=== PATIENT | female | born 1990 | race African-American/Black ===

== ENCOUNTER 2017-08-07 13:35 | Emergency (ER) | payer MEDICAID, OTHER ==
[~2017-08-07] VITALS: Ht 160 cm; Wt 93.9 kg
[~2017-08-07 13:35] MED LIST: ALBU17AE3; FRS325T PO; PREN1TAB39 PO
--- OUTSIDE RECORDS SUMMARY | 2017-08-07 13:43 | XMS REPORT ---
Author Author Max Agarwal Organization [facility] Address [address] [place], [place] [address] Care Team Providers Care Surveillance Operator Name Role Phone Max Agarwal PCP Unavailable Allergies and Adverse Reactions Name Reaction Notes PENICILLINS Plan of Treatment Planned Activity Comments Planned Date Planned Time Plan/Goal Ultrasound, OB complete >14 weeks 06/26/2017 12:00 AM *Thin layer pap with reflex to HPV ; cervical/vaginal (ThinPrep or Surepath) 06/25/2017 12:00 AM Gonorrhea 06/25/2017 12:00 AM Chlamydia 06/25/2017 12:00 AM HIV-1 antibody 06/25/2017 12:00 AM UA with Culture and Sensitivity 06/25/2017 12:00 AM panel (CBC with differential, automated, Hepatitis B surface antigen ( HBsAg), Rubella antibody, RBC antibody screen, Blood typing (ABO and Rh(D), RPR w/ Reflex to TP 06/25/2017 12:00 AM HEPATITIS C AB 06/25/2017 12:00 AM Medications Active Name Start Date Estimated Completion Date SIG Comments Plus 29 mg iron- 1 mg oral tablet 04/27/2017 take 1 tablet by oral route once daily with a meal for 30 days Zofran ODT 4 mg oral tablet,disintegrating 06/24/2017 06/26/2017 Place 1-2 tablets on your tongue every 8 hours as needed for vomiting. Name Start Date Expiration Date SIG Comments Motrin Oral Tablet 800 mg 09/14/2011 10/14/2011 take 1 tablet by oral route every 8 hours as needed for 30 days Percocet Oral Tablet 5-325 mg 09/14/2011 09/16/2011 take 1 tablet by oral route every 6 hours as needed for 2 days triamcinolone acetonide Topical Cream 0.1 % 02/05/2012 02/05/2012 apply a thin layer to the affected area(s) by topical route 2 times per day Macrobid Oral Capsule 100 mg 02/08/2012 02/15/2012 take 1 capsule (100 mg) by oral route every 12 hours with food for 7 days Discontinued Name Start Date Discontinued Date SIG Comments permethrin Topical Cream 5 % 01/22/2012 03/08/2012 apply (thoroughly massage into skin from head to soles of feet) by topical route once leave on for 8-14 hr , then remove by thorough washing Depo-Provera Intramuscular Suspension 150 mg/mL 03/08/2012 04/27/2017 inject 150 mg by intramuscular route every 3 months Problem List Description Status Onset Anemia Active Vital Signs Date Time BP-Sys(mm[Hg] BP-Nirmala(mm[Hg]) HR(bpm) RR(rpm) Temp WT HT HC BMI BSA BMI Percentile O2 Sat(%) 06/25/2017 1:52:00 PM 139 mmHg 67 mmHg 87 bpm 99.4 F 206 lbs 62 in 37.68 kg/m2 2.02 m2 06/24/2017 1:22:00 PM 128 mmHg 78 mmHg 83 bpm 16 rpm 99 F 203.25 lbs 62 in 37.1745 kg/m 2.0082 m 99 % 05/05/2017 8:14:00 AM 118 mmHg 76 mmHg 69 bpm 18 rpm 98.3 F 204 lbs 62 in 37.31 kg/m2 2.01 m2 99 % 04/27/2017 6:41:00 PM 128 mmHg 82 mmHg 74 bpm 16 rpm 99 F 202 lbs 62 in 36.9459 kg/m 2.002 m 100 % 11/27/2016 11:10:00 AM 122 mmHg 62 mmHg 74 bpm 18 rpm 98.3 F 202.5 lbs 62 in 37.04 kg/m2 2.00 m2 100 % 03/11/2012 1:46:00 PM 129 mmHg 76 mmHg 79 bpm 97.2 F 160.5 lbs 62 in 29.3555 kg/m 1.7846 m 92.7 % 03/08/2012 4:10:00 PM 129 mmHg 70 mmHg 89 bpm 97.4 F 160.5 lbs 62 in 29.36 kg/m2 1.78 m2 92.7 % 02/08/2012 3:33:00 PM 124 mmHg 64 mmHg 68 bpm 18 rpm 163.25 lbs 01/22/2012 2:04:00 PM 118 mmHg 64 mmHg 62 bpm 18 rpm 97.6 F 162.375 lbs 62 in 29.70 kg/m2 1.79 m2 93.3 % 12/19/2011 1:39:00 PM 102 mmHg 62 mmHg 72 bpm 164 lbs 62 in 29.9957 kg/m 1.8039 m 93.8 % 09/22/2011 10:20:00 AM 118 mmHg 72 mmHg 167 lbs 62 in 30.54 kg /m2 1.82 m2 94.6 % 09/21/2011 4:43:00 PM 110 mmHg 78 mmHg 72 bpm 98.4 F 168 lbs 62 in 30.7273 kg/m 1.8258 m 94.8 % 09/15/2011 8:28:00 AM 107 mmHg 66 mmHg 71 bpm 97.2 F 171 lbs 62 in 31.28 kg/m2 1.84 m2 95.3 % 09/13/2011 1:38:00 PM 118 mmHg 66 mmHg 94 bpm 170 lbs 62 in 31.0931 kg/m 1.8366 m 95.1 % Social History Name Description Comments Living with significant other Alcohol Never Tobacco Current every day smoker History of Procedures Date Ordered Description Order Status 09/13/2011 12:00 AM SPECIMEN HANDLING OFFICE-LAB Reviewed 09/13/2011 12:00 AM N.GONORRHOEAE DNA AMP PROB Reviewed 09/13/2011 12:00 AM CHLAMYDIA CULTURE Reviewed 09/13/2011 12:00 AM OBSTETRIC PANEL Reviewed 09/13/2011 12:00 AM HIV-1ANTIBODY Reviewed 09/13/2011 12:00 AM URINALYSIS AUTO W/SCOPE Reviewed 09/13/2011 12:00 AM OB US < 14 WKS SINGLE FETUS Reviewed 09/13/2011 12:00 AM ASSAY OF PROGESTERONE Reviewed 09/13/2011 12:00 AM CHORIONIC GONADOTROPIN TEST Reviewed 09/13/2011 12:00 AM ASSAY OF PROGESTERONE Reviewed 09/13/2011 12:00 AM CHORIONIC GONADOTROPIN TEST Reviewed 09/22/2011 12:00 AM THER/PROPH/DIAG INJ SC/IM Reviewed 12/19/2011 12:00 AM THER/PROPH/DIAG INJ SC/IM Reviewed 02/09/2012 12:00 AM URINALYSIS AUTO W/O SCOPE Reviewed 02/08/2012 12:00 AM URINE CULTURE/COLONY COUNT Reviewed 03/11/2012 12:00 AM THER/PROPH/DIAG INJ SC/IM Reviewed 03/11/2012 12:00 AM Depo-Provera 150 Mg (brought in by patient) Reviewed 04/27/2017 7:12 PM URINE TEST Reviewed Results Summary Date and Description Results 09/13/2011 3:45 PM COLOR YELLOW APPEARANCE HAZY SPEC GRAV >=1.030 pH 5.5 PROTEIN NEGATIVE GLUCOSE NEGATIVE KETONE NEGATIVE BILIRUBIN NEGATIVE BLOOD NEGATIVE NITRITE NEGATIVE LEUK SCREEN NEGATIVE WBC/HPF 0-5 RBC/HPF RARE CASTS/ LPF NEGATIVE CRYSTALS NEGATIVE MUCOUS THRDS NEGATIVE BACTERIA NEGATIVE EPITH CELLS FEW SQUAMOUS TRICHOMONAS NEGATIVE YEAST NEGATIVE CULT ORDERED YES WBC 6.9 RBC 5.12 HGB 11.30 g/dLHCT 34.60 %MCV 68.0 fLMCH 22.10 pgMCHC 32.70 g/dLRDW SD 44 RDW CV 17.60 %MPV 9.10 fLPLT 360 NRBC# 0.00 NRBC% 0.0 %NEUT 58.10 %%LYMP 31.90 %%MONO 7.40 %%EOS 2.20 %%BASO 0.40 %#NEUT 4.02 #LYMP 2.21 #MONO 0.51 #EOS 0.15 #BASO 0.03 MANUAL DIFF SEE BELOW SEGS 57 BANDS 5 LYMPHS 31 MONOS 5 EOS 2.0 %MICRO 2++ PROGESTERONE 6.30 ng/mLBETA HCG QUANT 2719.71 RUBELLA 16.0 IU/mL 09/15/2011 8:15 AM BETA HCG QUANT 2116.99 PROGESTERONE 6.10 ng/mL 04/27/2017 7:12 PM Test, Urine positive History Of Immunizations Not available. History of Past Illness Name Date of Onset Comments Anemia test confirmed positive Sep 13 2011 1:48PM Missed Sep 13 2011 1:48PM , Missed Sep 13 2011 3:06PM , Missed Sep 15 2011 9:30AM Postoperative Visit Sep 21 2011 4:47PM Contraceptive counseling (Depo-Provera) Sep 22 2011 10:23AM Contraceptive counseling (Depo-Provera) Dec 19 2011 1:50PM Scabies Jan 22 2012 2:06PM Dysuria Feb 08 2012 3:34PM Contraceptive counseling (Depo-Provera) Mar 11 2012 1:55PM Encounter for occupational health examination Nov 27 2016 11:12AM Less than 8 weeks gestation of Apr 27 2017 6:45PM Less than 8 weeks gestation of May 05 2017 8:17AM Bleeding in early May 05 2017 8:17AM Hyperemesis gravidarum Jun 24 2017 1:30PM Late care Jun 25 2017 2:06PM test confirmed positive Jun 25 2017 1:58PM Vaginal discharge Jun 25 2017 1:58PM Payers Insurance Name Company Name Plan Name Plan Number Policy Number Policy Group Number Start Date [place] Documentation Spec Prog - RHC [place] Documentation Spec Prog - RHC [id number] N/A [facility] [id number] N/A [employer] - CMFHP [employer] -CMFHP [id number] N/A [facility] Med Occupational Medicine [id number] N/A History of Encounters Visit Date Visit Type Provider 06/25/2017 Office visit Max Agarwal MD 06/24/2017 Office visit Jojo Lehman SCALE OPERATOR 05/05/2017 Office visit Rissa Pina SCALE OPERATOR 04/27/2017 Office visit Rissa Pina SCALE OPERATOR 11/27/2016 Office visit Zora Wu SCALE OPERATOR 03/11/2012 Nurse visit Patricia Lea MD 03/08/2012 Voided Patricia Lea MD 02/08/2012 Office visit Zora Wu SCALE OPERATOR 01/22/2012 Office visit Zora Wu SCALE OPERATOR 12/19/2011 Nurse visit All Thakur MD 09/22/2011 Nurse visit All Thakur MD 09/21/2011 Surgery All Thakur MD 09/15/2011 Hospital All Thakur MD 09/15/2011 Office visit All Thakur MD 09/13/2011 Office visit All Thakur MD
--- OUTSIDE RECORDS SUMMARY | 2017-08-07 13:43 | XMS REPORT ---
Author KRISTIN Hall [facility] eClinicalWorks Address Unknown Phone Unavailable Care Team Providers Care Professional Bass Fisherman Name Role Phone KRISTIN ADAMSON CP Unavailable Allergies, Adverse Reactions, Alerts Substance Reaction Event Type Amoxicillin hives Drug Allergy Problems Problem Type Condition Code Onset Dates Condition Status Assessment Encounter for management and injection of depo-Provera Z30.42 Active Assessment Encounter for Depo-Provera contraception Z30.42 Active Problem Other general counseling and advice for contraceptive management V25.09 Active Medications Medication Code System Code Instructions Start Date End Date Status Dosage Depo-Provera [facility] [address]-77 150 MG/ML Intramuscular one time March 03, 2016 February 26, 2017 1 ml Procedures Procedure Coding System Code Date Office Visit, Est Pt., Level 3 CPT-4 76294 March 03, 2016 DEPO PROVERA (150 MG/ML) CPT-4 J1050 March 03, 2016 URINE TEST CPT-4 27574 March 03, 2016 THER/PROPH/DIAG INJ, SC/IM CPT-4 40099 March 03, 2016 Vital Signs Date/Time: March 03, 2016 Cardiac Monitoring Heart Rate 78 bpm Weight 180.7 lbs Height 62 in Blood Pressure Diastolic 60 mmHg Blood Pressure Systolic 120 mmHg Results No Known Results Summary Purpose eClinicalWorks Submission
--- OUTSIDE RECORDS SUMMARY | 2017-08-07 13:43 | XMS REPORT ---
Author Author Rissa Pina [facility] Address [address] [place], [place] [address] Care Team Providers Care Chef Passenger Vessel Name Role Phone Rissa Pina PCP Unavailable Allergies and Adverse Reactions Name Reaction Notes PENICILLINS Plan of Treatment Not available. Medications Name Start Date Expiration Date SIG Comments [...] HC BMI BSA BMI Percentile O2 Sat(%) 04/27/2017 6:41:00 PM 128 mmHg 82 mmHg 74 bpm 16 rpm 99 F 202 lbs 62 in 36.95 kg/m2 2.00 m2 100 % 11/27/2016 11:10:00 AM 122 mmHg 62 mmHg 74 bpm 18 rpm 98.3 F 202.5 lbs 62 in 37.0374 kg/m 2.0045 m 100 % 03/11/2012 1:46:00 PM 129 mmHg 76 mmHg 79 bpm 97.2 F 160.5 lbs 62 in 29.36 kg/m2 1.78 m2 92.7 % 03/08/2012 4:10:00 PM 129 mmHg 70 mmHg 89 bpm 97.4 F 160.5 lbs 62 in 29.3555 kg/m 1.7846 m 92.7 % 02/08/2012 3:33:00 PM 124 mmHg 64 mmHg 68 bpm 18 rpm 163.25 lbs 01/22/2012 2:04:00 PM 118 mmHg 64 mmHg 62 bpm 18 rpm 97.6 F 162.375 lbs 62 in 29.6985 kg/m 1.795 m 93.3 % 12/19/2011 1:39:00 PM 102 mmHg 62 mmHg 72 bpm 164 lbs 62 in 30.00 kg/m2 1.80 m2 93.8 % 09/22/2011 10:20:00 AM 118 mmHg 72 mmHg 167 lbs 62 in 30.5444 kg/m 1.8203 m 94.6 % 09/21/2011 4:43:00 PM 110 mmHg 78 mmHg 72 bpm 98.4 F 168 lbs 62 in 30.73 kg/m2 1.83 m2 94.8 % 09/15/2011 8:28:00 AM 107 mmHg 66 mmHg 71 bpm 97.2 F 171 lbs 62 in 31.276 kg/m 1.842 m 95.3 % 09/13/2011 1:38:00 PM 118 mmHg 66 mmHg 94 bpm 170 lbs 62 in 31.09 kg/m2 1.84 m2 95.1 % Social History Name Description Comments [...] BETA HCG QUANT 2116.99 PROGESTERONE 6.10 ng/mL History Of Immunizations Not available. History of [...] occupational health examination Nov 27 2016 11:12AM Payers Insurance Name Company Name Plan Name Plan Number Policy Number Policy Group Number Start Date [facility] Med Occupational Medicine [id number] N/A [facility] [id number] N/A [facility] [id number] N/A History of Encounters Visit Date Visit Type Provider 04/27/2017 Office visit Rissa Pina VETERINARY MEDICAL OFFICER 11/27/2016 Office visit Zora Wu VETERINARY MEDICAL OFFICER 03/11/2012 Nurse visit Patricia Lea MD 03/08/2012 Voided Patricia Lea MD 02/08/2012 Office visit Zora Wu VETERINARY MEDICAL OFFICER 01/22/2012 Office visit Zora Wu VETERINARY MEDICAL OFFICER 12/19/2011 Nurse visit All Thakur MD 09/22/2011 Nurse visit All Thakur MD 09/21/2011 Surgery All Thakur MD 09/15/2011 Hospital All Thakur MD 09/15/2011 Office visit All Thakur MD 09/13/2011 Office visit All Thakur MD
--- OUTSIDE RECORDS SUMMARY | 2017-08-07 13:44 | XMS REPORT ---
Author Author KRISTIN ADAMSON [facility] Address [address] [place] [address] Care Team Providers Care Motorized Squad Commanding Officer Name Role Phone KRISTIN ADAMSON Unavailable PROBLEMS Type Condition ICD9-CM Code [id number] Code Onset Dates Condition Status SNOMED Code Problem Constipation, unspecified constipation type K59.00 Active 02801522 Problem Vaginal burning N94.9 Active 014452117 Problem Other general counseling and advice for contraceptive management V25.09 Active 287024859 ALLERGIES Unknown Allergies SOCIAL HISTORY No smoking Hx information available PLAN OF CARE VITAL SIGNS MEDICATIONS Unknown Medications RESULTS Name Result Date Reference Range TEST, URINE (IN HOUSE) 2016-08-17 RESULTS negative Lot # [id number] Control + Exp date 12/19 PROCEDURES Procedure Date Ordered Related Diagnosis Body Site URINE TEST Aug 17, 2016 DEPO PROVERA (150 MG/ML) Aug 17, 2016 THER/PROPH/DIAG INJ, SC/IM Aug 17, 2016 IMMUNIZATIONS Vaccine Route Administration Date Status DEPO PROVERA (150 MG/ML) IM Intramuscular Aug 17, 2016 Administered
--- OUTSIDE RECORDS SUMMARY | 2017-08-07 13:44 | XMS REPORT ---
Author Author KRISTIN ADAMSON [facility] Address [address] [place] [address] Care Team Providers Care Fraternity Adviser Name Role Phone KRISTIN ADAMSON Unavailable PROBLEMS Type Condition ICD9-CM Code KUH29-FL Code Onset Dates Condition Status SNOMED Code Problem Constipation, unspecified constipation type K59.00 Active 45910158 Problem Vaginal burning N94.9 Active 832444681 Problem Other general counseling and advice for contraceptive management V25.09 Active 762509440 ALLERGIES Substance Reaction Event Type Date Status Amoxicillin hives Drug Allergy Nov, Active SOCIAL HISTORY Never Assessed PLAN OF CARE Activity Details Follow Up prn Reason: VITAL SIGNS Height 62 in 2016-11-17 Weight 200.2 lbs 2016-11-17 Temperature 99.5 degrees Fahrenheit 2016-11-17 Heart Rate 82 bpm 2016-11-17 Respiratory Rate 18 2016-11-17 BMI 36.61 kg/m2 2016-11-17 Blood pressure systolic 118 mmHg 2016-11-17 Blood pressure diastolic 76 mmHg 2016-11-17 MEDICATIONS Medication Instructions Dosage Frequency Start Date End Date Duration Status Doxycycline Hyclate 100 mg Orally every 12 hrs 1 capsule 12h Nov, Nov, 10 days Active Depo-Provera 150 MG/ML Intramuscular one time 1 ml Mar, Feb, 90 days Active RESULTS Name Result Date Reference Range TRICHOMONAS (IN HOUSE) 2016-11-17 TRICHOMONAS negative Control + Lot # [id number] Exp date 03/2017 BACTERIAL VAGINOSIS (IN HOUSE) 2016-11-17 RESULTS negative Control + Lot # [id number] Exp date 06/2017 CULTURE, GENITAL 2016-11-17 Genital Culture, Routine Final report Result 1 PDF Report 2016-11-17 PDF Report1 LCLS PAP TEST, HPV IF ASCUS 2016-11-17 DIAGNOSIS: Specimen adequacy: Clinician provided ICD10: Performed by: Electronically signed by: . . Pathologist provided ICD10: Note: . HPV, high-risk Positive Negative GC/CHLAM PROBE (STATE) 2016-11-17 CHLAMYDIA GC PROCEDURES Procedure Date Ordered Result Body Site SPECIMEN HANDLING November 17, 2016 No Charge November 17, 2016 OLGUIN VAG, DNA, DIR PROBE November 17, 2016 TRICHOMONAS ASSAY W/OPTIC November 17, 2016 CULTURE, BACTERIA, OTHER November 17, 2016 IMMUNIZATIONS No Known Immunizations MEDICAL (GENERAL) HISTORY Type Description Date Medical History Due date 12/17/2016 Surgical History wisdom teeth Hospitalization History child
--- OUTSIDE RECORDS SUMMARY | 2017-08-07 13:44 | XMS REPORT ---
Author Author Max Agarwal Organization [facility] Address [address] [place], [place] [address] Care Team Providers Care Telephone Directory Distributor Driver Name Role Phone Max Agarwal PCP Unavailable Allergies and Adverse Reactions Name Reaction Notes PENICILLINS Plan of Treatment Not available. Medications Active Name Start Date Estimated Completion Date SIG Comments Plus 29 mg iron- 1 mg oral tablet 04/27/2017 take 1 tablet by oral route once daily with a meal for 30 days metronidazole 500 mg oral tablet 07/02/2017 take 1 tablet (500 mg) by oral route every 12 hours for 7 days Zofran ODT 4 mg oral tablet,disintegrating 07/19/2017 Place 1-2 tablets on your tongue every [...] Reviewed 04/27/2017 7:12 PM URINE TEST Reviewed 06/25/2017 12:00 AM CYTOPATH C/V THIN LAYER Reviewed 06/25/2017 12:00 AM SPECIMEN HANDLING OFFICE-LAB Reviewed 06/25/2017 12:00 AM N.GONORRHOEAE DNA AMP PROB Reviewed 06/25/2017 12:00 AM CHLAMYDIA CULTURE Reviewed 06/25/2017 12:00 AM HIV-1ANTIBODY Reviewed 06/25/2017 12:00 AM URINALYSIS AUTO W/SCOPE Reviewed 06/25/2017 12:00 AM OBSTETRIC PANEL Reviewed 06/25/2017 12:00 AM HEPATITIS C AB TEST Reviewed 06/26/2017 12:00 AM OB US < 14 WKS SINGLE FETUS Reviewed Results Summary Date and Description Results [...] ng/mL 04/27/2017 7:12 PM Test, Urine positive 06/26/2017 2:45 PM HEPATITIS C 0.09 HIV AG/AB COMBO 0.07 COLOR YELLOW APPEARANCE SL CLOUDY SPEC GRAV 1.020 pH 6.5 PROTEIN NEGATIVE GLUCOSE NEGATIVE mg /dLKETONE NEGATIVE BILIRUBIN NEGATIVE BLOOD NEGATIVE NITRITE NEGATIVE LEUK SCREEN NEGATIVE WBC/HPF 0-5 RBC/HPF NEGATIVE CASTS/LPF NEGATIVE /LPFCRYSTALS NEGATIVE MUCOUS THRDS 2++ BACTERIA 2++ EPITH CELLS 2++ SQUAMOUS /HPFTRICHOMONAS NEGATIVE YEAST NEGATIVE CULT ORDERED YES WBC 10.2 RBC 5.13 HGB 12.60 g/dLHCT 38.80 %MCV 76.0 fLMCH 24.60 pgMCHC 32.50 g/dLRDW SD 43 RDW CV 15.50 %MPV 8.10 fLPLT 464 NRBC# 0.00 NRBC% 0.0 %NEUT 70.0 %%LYMP 20.10 %%MONO 7.60 %%EOS 1.80 %% BASO 0.20 %#NEUT 7.14 #LYMP 2.05 #MONO 0.77 #EOS 0.18 #BASO 0.02 MANUAL DIFF NOT IND Rubella Antibodies, IgG 1.53 IndexHBsAg Screen Negative RPR Non Reactive History Of Immunizations Not available. History of [...] Policy Number Policy Group Number Start Date [place] [employer] Commodity Manager Prog - RHC [facility] Asst Prog - RHC [id number] Thursday, 2017 [facility] [id number] N/A [facility] - CMP [employer] -CMP [id number] N/A [facility] Med Occupational Medicine [id number] N/A History of Encounters Visit Date Visit Type Provider 07/30/2017 Office visit Max Agarwal MD 06/25/2017 Office visit Max Agarwal MD 06/24/2017 Office visit Jojo Lehman TRAINING DEVELOPMENT DIRECTOR 05/05/2017 Office visit Rissa Pina TRAINING DEVELOPMENT DIRECTOR 04/27/2017 Office visit Rissa Pina TRAINING DEVELOPMENT DIRECTOR 11/27/2016 Office visit Zora Wu TRAINING DEVELOPMENT DIRECTOR 03/11/2012 Nurse visit Patricai Lea MD 03/08/2012 Voided Patricia Lea MD 02/08/2012 Office visit Zora Wu TRAINING DEVELOPMENT DIRECTOR 01/22/2012 Office visit Zora Wu TRAINING DEVELOPMENT DIRECTOR 12/19/2011 Nurse visit All Thakur MD 09/22/2011 Nurse visit All Thakur MD 09/21/2011 Surgery All Thakur MD 09/15/2011 Hospital All Thakur MD 09/15/2011 Office visit All Thakur MD 09/13/2011 Office visit All Thakur MD
--- OUTSIDE RECORDS SUMMARY | 2017-08-07 13:44 | XMS REPORT ---
Author Author CODIE KIRBY Organization [facility] Address [address] [place] [address] Care Team Providers Care Digital Experience Manager Name Role Phone CODIE KIRBY Unavailable PROBLEMS Type Condition ICD9-CM Code HPF66-OP Code Onset Dates Condition Status SNOMED Code Problem Other general counseling and advice for contraceptive management V25.09 Active 587813786 Assessment Kacey infection B37.9 Apr, Active 84607428 ALLERGIES Substance Reaction Event Type Date Status Amoxicillin hives Drug Allergy Apr, Active SOCIAL HISTORY No smoking Hx information available PLAN OF CARE VITAL SIGNS Height 62 in 2016-05-03 Weight 181.4 lbs 2016-05-03 Heart Rate 80 bpm 2016-05-03 Respiratory Rate 18 2016-05-03 BMI 33.17 kg/m2 2016-05-03 Blood pressure systolic 138 mmHg 2016-05-03 Blood pressure diastolic 60 mmHg 2016-05-03 MEDICATIONS Medication Instructions Dosage Frequency Start Date End Date Duration Status Depo-Provera 150 MG/ML Intramuscular one time 1 ml Mar, Feb, 90 days Active RESULTS Name Result Date Reference Range UA LONG DIP (IN HOUSE) 2016-05-03 Lot # [id number] Exp date 05/2016 Clarity clear Color dark yellow Odor none GLU negative DERRELL negative KET negative SG 1.025 BLO negative pH 5.5 Protein negative URO NIT negative YOCASTA negative Lot # Exp date PROCEDURES Procedure Date Ordered Related Diagnosis Body Site URINALYSIS, AUTO, W/O SCOPE May 03, 2016 Office Visit, Est Pt., Level 3 May 03, 2016 IMMUNIZATIONS No Known Immunizations
--- OUTSIDE RECORDS SUMMARY | 2017-08-07 13:44 | XMS REPORT ---
Author Author Max Agarwal Organization [facility] Address [address] [place], [place] [address] Care Team Providers Care Bakery Supervisor Name Role Phone Max Agarwal PCP Unavailable [...] Policy Number Policy Group Number Start Date [place] Ballistic Technician Prog - RHC [place] Ballistic Technician Prog - RHC [id number] N/A [facility] [id number] N/A [employer] - CMFHP [employer] -CMFHP [id number] N/A [facility] Med Occupational Medicine [id number] N/A History of Encounters Visit Date Visit Type Provider 06/25/2017 Office visit Max Agarwal MD 06/24/2017 Office visit Jojo Lehman BOILER OPERATOR HELPER 05/05/2017 Office visit Rissa Pina BOILER OPERATOR HELPER 04/27/2017 Office visit Rissa Pina BOILER OPERATOR HELPER 11/27/2016 Office visit Zora Wu BOILER OPERATOR HELPER 03/11/2012 Nurse visit Patricia Lea MD 03/08/2012 Voided Patricia Lea MD 02/08/2012 Office visit Zora Wu BOILER OPERATOR HELPER 01/22/2012 Office visit Zora Wu BOILER OPERATOR HELPER 12/19/2011 Nurse visit All Thakur MD 09/22/2011 Nurse visit All Thakur MD 09/21/2011 Surgery All Thakur MD 09/15/2011 Hospital All Thakur MD 09/15/2011 Office visit All Thakur MD 09/13/2011 Office visit All Thakur MD
--- OUTSIDE RECORDS SUMMARY | 2017-08-07 13:44 | XMS REPORT ---
Author Author KRISTIN ADAMSON [facility] Address [address] [place] [address] Care Team Providers Care Retirement Village Manager Name Role Phone KRISTIN ADAMSON Unavailable PROBLEMS Type Condition ICD9-CM Code HNH12-ES Code Onset Dates Condition Status SNOMED Code Problem Constipation, unspecified constipation type K59.00 Active 30065083 Problem Vaginal burning N94.9 Active 394865955 Problem Other general counseling and advice for contraceptive management V25.09 Active 888441913 ALLERGIES Substance Reaction Event Type Date Status Amoxicillin hives Drug Allergy Aug, Active SOCIAL HISTORY No smoking Hx information available PLAN OF CARE Activity Details Follow Up prn Reason: VITAL SIGNS Height 62 in 2016-08-10 Weight 187.5 lbs 2016-08-10 Temperature 98.4 degrees Fahrenheit 2016-08-10 Heart Rate 82 bpm 2016-08-10 Respiratory Rate 18 2016-08-10 BMI 34.29 kg/m2 2016-08-10 Blood pressure systolic 112 mmHg 2016-08-10 Blood pressure diastolic 66 mmHg 2016-08-10 MEDICATIONS Medication Instructions Dosage Frequency Start Date End Date Duration Status Depo-Provera 150 MG/ML Intramuscular one time 1 ml Mar, Feb, 90 days Active Azithromycin 250 MG Orally Once a day 2 tablets on the first day, then 1 tablet daily for 4 days 24h Aug, Aug, 5 day(s) Active PredniSONE 20 mg Orally Once a day 1 tablet 24h Aug, Aug, 05 days Active RESULTS No Results PROCEDURES Procedure Date Ordered Related Diagnosis Body Site Office Visit, Est Pt., Level 3 Aug 10, 2016 IMMUNIZATIONS No Known Immunizations
--- OUTSIDE RECORDS SUMMARY | 2017-08-07 13:45 | XMS REPORT ---
Author Author Max Agarwal [facility] Address [address] [place], [place] [address] Care Team Providers Care Wet Process Miller Head Name Role Phone Max Agarwal PCP Allergies and Adverse Reactions Name Reaction Notes PENICILLINS Plan of Treatment Planned Activity Comments Planned Date Planned Time Plan/Goal Ultrasound, OB complete >14 weeks 08/20/2017 12:00 AM Medications Active Name Start Date Estimated Completion Date SIG Comments Plus 29 mg iron- 1 mg oral tablet 04/27/2017 take 1 tablet by oral route once daily with a meal for 30 days Zofran ODT 4 mg oral tablet,disintegrating 07/19/2017 Place 1-2 tablets on your tongue every 8 hours as needed for vomiting. Diclegis 10-10 mg oral tablet,delayed release (DR/EC) 07/31/2017 take 1 tablet by oral route in the morning and 2 tablets at bedtime Name Start Date Expiration Date SIG Comments [...] 12 hours with food for 7 days metronidazole 500 mg oral tablet 07/02/2017 take 1 tablet (500 mg) by oral route every 12 hours for 7 days Discontinued Name Start Date [...] US < 14 WKS SINGLE FETUS Reviewed 07/30/2017 12:00 AM Progenity Testing Returned Results Summary Date and Description Results 09/13/2011 [...] 1:58PM Vaginal discharge Jun 25 2017 1:58PM Normal in multigravida in second trimester Jul 30 2017 2:34PM Normal in multigravida in second trimester Jul 30 2017 2:49PM Payers Insurance Name Company Name Plan Name Plan Number Policy Number Policy Group Number Start Date [place] Dog Licenser Prog - RHC [facility] Asst Prog - RHC [id number] Thursday, 2017 Amer[employer] - [place] Amer[employer] - [place] [id number] N/A [facility] [id number] N/A zashleyCoventry - [facility] Cov[facility] [id number] N/A [facility] Occupational Medicine [id number] N/A History of Encounters Visit Date Visit Type Provider 07/30/2017 Office visit Max Agarwal MD 06/25/2017 Office visit Max Agarwal MD 06/24/2017 Office visit Jojo Lehman ORTHOPEDIC CAST SPECIALIST 05/05/2017 Office visit Rissa Pina ORTHOPEDIC CAST SPECIALIST 04/27/2017 Office visit Rissa Pina ORTHOPEDIC CAST SPECIALIST 11/27/2016 Office visit Zora Wu ORTHOPEDIC CAST SPECIALIST 03/11/2012 Nurse visit Patricia Lea MD 03/08/2012 Voided Patricia Lea MD 02/08/2012 Office visit Zora Wu ORTHOPEDIC CAST SPECIALIST 01/22/2012 Office visit Zora Wu ORTHOPEDIC CAST SPECIALIST 12/19/2011 Nurse visit All Thakur MD 09/22/2011 Nurse visit All Thakur MD 09/21/2011 Surgery All Thakur MD 09/15/2011 Hospital All Thakur MD 09/15/2011 Office visit All Thakur MD 09/13/2011 Office visit All Thakur MD
--- OUTSIDE RECORDS SUMMARY | 2017-08-07 13:45 | XMS REPORT ---
Author Author Rissa Pina [facility] Address [address] [place], [place] [id number] Care Team Providers Care Dedicated Truck Driver Name Role Phone Rissa Pina PCP Unavailable Allergies and Adverse Reactions Name Reaction Notes PENICILLINS Plan of Treatment Not available. Medications Active Name Start Date Estimated Completion Date SIG Comments Plus 29 mg iron- 1 mg oral tablet 04/27/2017 take 1 tablet by oral route once daily with a meal for 30 days Name Start Date Expiration Date SIG Comments [...] HC BMI BSA BMI Percentile O2 Sat(%) 05/05/2017 8:14:00 AM 118 mmHg 76 mmHg [...] weeks gestation of Apr 27 2017 6:45PM Payers Insurance Name Company Name Plan Name Plan Number Policy Number Policy Group Number Start Date [facility] [id number] N/A zzzCoventry - C[facility] [id number] N/A [facility] Med Occupational Medicine [id number] N/A History of Encounters Visit Date Visit Type Provider 05/05/2017 Office visit Rissa Pina BUS DRIVER 04/27/2017 Office visit Rissa Pina BUS DRIVER 11/27/2016 Office visit Zora Wu BUS DRIVER 03/11/2012 Nurse visit Patricia Lea MD 03/08/2012 Voided Patricia Lea MD 02/08/2012 Office visit Zora Wu BUS DRIVER 01/22/2012 Office visit Zora Wu BUS DRIVER 12/19/2011 Nurse visit All Thakur MD 09/22/2011 Nurse visit All Thakur MD 09/21/2011 Surgery All Thakur MD 09/15/2011 Hospital All Thakur MD 09/15/2011 Office visit All Thakur MD 09/13/2011 Office visit All Thakur MD
--- OUTSIDE RECORDS SUMMARY | 2017-08-07 13:46 | XMS REPORT ---
Author Author KRISTIN ADAMSON [facility] Address [address] [place] [address] Care Team Providers Care Dyeing Machine Tender Name Role Phone KRISTIN ADAMSON Unavailable PROBLEMS Type Condition ICD9-CM Code ADK79-HP Code Onset Dates Condition Status SNOMED Code Problem Constipation, unspecified constipation type K59.00 Active 51687884 Problem Vaginal burning N94.9 Active 732434823 Problem Other general counseling and advice for contraceptive management V25.09 Active 025988792 ALLERGIES No Information SOCIAL HISTORY Never Assessed PLAN OF CARE Activity Details Follow Up 48-72 hours Reason: VITAL SIGNS MEDICATIONS No Known Medications RESULTS No Results PROCEDURES Procedure Date Ordered Result Body Site TB INTRADERMAL 2016-10-18 N/A TB INTRADERMAL TEST Oct 18, 2016 IMMUNIZATIONS No Known Immunizations MEDICAL (GENERAL) HISTORY Type Description Date Medical History Due date 12/17/2016 Surgical History wisdom teeth Hospitalization History child
--- OUTSIDE RECORDS SUMMARY | 2017-08-07 13:46 | XMS REPORT ---
Author Author Rissa Pina [facility] Address [address] [place], [place] [address] Care Team Providers Care Teaching Dietitian Name Role Phone Rissa Pina PCP Unavailable [...] Bleeding in early May 05 2017 8:17AM Payers Insurance Name Company Name Plan Name Plan Number Policy Number Policy Group Number Start Date [facility] [id number] N/A zzzCoventry - CMP [facility] [id number] N/A [facility] Med Occupational Medicine [id number] N/A History of Encounters Visit Date Visit Type Provider 05/05/2017 Office visit Rissa Pina AIR CHIPPER 04/27/2017 Office visit Rissa Pina AIR CHIPPER 11/27/2016 Office visit Zora Wu AIR CHIPPER 03/11/2012 Nurse visit Patricia Lea MD 03/08/2012 Voided Patricia Lea MD 02/08/2012 Office visit Zora Wu AIR CHIPPER 01/22/2012 Office visit Zora Wu AIR CHIPPER 12/19/2011 Nurse visit All Thakur MD 09/22/2011 Nurse visit All Thakur MD 09/21/2011 Surgery All Thakur MD 09/15/2011 [facility] All Thakur MD 09/15/2011 Office visit All Thakur MD 09/13/2011 Office visit All Thakur MD
--- OUTSIDE RECORDS SUMMARY | 2017-08-07 13:46 | XMS REPORT ---
Author Author Max Agarwal Organization [facility] Address [address] [place], [place] [address] Care Team Providers Care Cisco Engineer Name Role Phone Max Agarwal PCP Unavailable Allergies and Adverse Reactions Name Reaction Notes PENICILLINS Plan of Treatment Planned Activity Comments Planned Date Planned Time Plan/Goal Ultrasound, OB complete >14 weeks 06/26/2017 12:00 AM Medications Active Name Start Date [...] 1:30PM Late care Jun 25 2017 2:06PM Payers Insurance Name Company Name Plan Name Plan Number Policy Number Policy Group Number Start Date [place] In Processing Instructor Prog - RHC [place] In Processing Instructor Prog - RHC [id number] N/A [facility] [id number] N/A [facility]oventry - [facility] [id number] N/A [facility] Med Occupational Medicine [id number] N/A History of Encounters Visit Date Visit Type Provider 06/25/2017 Office visit Max Agarwal MD 06/24/2017 Office visit Jojo Lehman TANNER ROTARY DRUM CONTINUOUS PROCESS 05/05/2017 Office visit Rissaleonard Ojedaong TANNER ROTARY DRUM CONTINUOUS PROCESS 04/27/2017 Office visit Rissa Pina TANNER ROTARY DRUM CONTINUOUS PROCESS 11/27/2016 Office visit Zora Wu TANNER ROTARY DRUM CONTINUOUS PROCESS 03/11/2012 Nurse visit Patricia Lea MD 03/08/2012 Voided Patricia Lea MD 02/08/2012 Office visit Zora Wu TANNER ROTARY DRUM CONTINUOUS PROCESS 01/22/2012 Office visit Zora Wu TANNER ROTARY DRUM CONTINUOUS PROCESS 12/19/2011 Nurse visit All Thakur MD 09/22/2011 Nurse visit All Thakur MD 09/21/2011 Surgery All Thakur MD 09/15/2011 Hospital All Thakur MD 09/15/2011 Office visit All Thakur MD 09/13/2011 Office visit All Thakur MD
--- OUTSIDE RECORDS SUMMARY | 2017-08-07 13:46 | XMS REPORT ---
Author Author Rissa Pina [facility] Address [address] [place], [place] [address] Care Team Providers Care Broadcast Checker Name Role Phone Rissa Pina PCP Unavailable [...] Policy Group Number Start Date [facility] [id number] N/A [facility]oventry [facility] Cov[facility] -[facility] [id number] N/A [facility] Med Occupational Medicine [id number] N/A History of Encounters Visit Date Visit Type Provider 05/05/2017 Office visit Rissa Pina NEUROLOGY TECH 04/27/2017 Office visit Rissa Pina NEUROLOGY TECH 11/27/2016 Office visit Zora Wu NEUROLOGY TECH 03/11/2012 Nurse visit Patricia Lea MD 03/08/2012 Voided Patricia Lea MD 02/08/2012 Office visit Zora Wu NEUROLOGY TECH 01/22/2012 Office visit Zora Wu NEUROLOGY TECH 12/19/2011 Nurse visit All Thakur MD 09/22/2011 Nurse visit All Thakur MD 09/21/2011 Surgery All Thakur MD 09/15/2011 Hospital All Thakur MD 09/15/2011 Office visit All Thakur MD 09/13/2011 Office visit All Thakur MD
--- OUTSIDE RECORDS SUMMARY | 2017-08-07 13:47 | XMS REPORT ---
Author KRISTIN Hall [facility] eClinicalWorks Address Unknown Phone Unavailable Care Team Providers Care Wharf Labourer Name Role Phone KRISTIN ADAMSON CP Unavailable Allergies, Adverse Reactions, Alerts Substance Reaction Event Type Amoxicillin hives Drug Allergy Problems Problem Type Condition Code Onset Dates Condition Status Problem Other general counseling and advice for contraceptive management V25.09 Active Assessment Other specified bacterial agents as the cause of diseases classified elsewhere B96.89 Active Problem Vaginal burning N94.9 Active Assessment Acute vaginitis N76.0 Active Medications Medication Code System Code Instructions Start Date End Date Status Dosage Flagyl [facility] [address]-97 500 MG Orally 2 times a day Jun 08, 2016 Jun 15, 2016 1 tablet Depo-Provera [facility] [address]-05 150 MG/ML Intramuscular one time March 03, 2016 February 26, 2017 1 ml Procedures Procedure Coding System Code Date Office Visit, Est Pt., Level 3 CPT-4 59641 Jun 14, 2016 Vital Signs Date/Time: Jun 14, 2016 Cardiac Monitoring Heart Rate 78 bpm Weight 178.8 lbs Height 62 in BMI 32.70 Index Blood Pressure Diastolic 74 mmHg Blood Pressure Systolic 112 mmHg Results No Known Results Summary Purpose eClinicalWorks Submission
--- OUTSIDE RECORDS SUMMARY | 2017-08-07 13:47 | XMS REPORT ---
Author Author Max Agarwal Organization [facility] Address [address] [place], [place] [address] Care Team Providers Care Ship'S Officer Name Role Phone Max Agarwal PCP Unavailable [...] Policy Number Policy Group Number Start Date [place] Dermatology Physician Prog - RHC [place] Dermatology Physician Prog - RHC [id number] N/A [facility] [id number] N/A zzzCoventry - [facility] Coventry -[facility] [id number] N/A [facility] Med Occupational Medicine [id number] N/A History of Encounters Visit Date Visit Type Provider 06/25/2017 Office visit Max Agarwal MD 06/24/2017 Office visit Jojo Lehman RESEARCH ADMINISTRATOR 05/05/2017 Office visit Rissa Pina RESEARCH ADMINISTRATOR 04/27/2017 Office visit Rissa Pina RESEARCH ADMINISTRATOR 11/27/2016 Office visit Zora Wu RESEARCH ADMINISTRATOR 03/11/2012 Nurse visit Patricia Lea MD 03/08/2012 Voided Patricia Lea MD 02/08/2012 Office visit Zora Wu RESEARCH ADMINISTRATOR 01/22/2012 Office visit Zora Wu RESEARCH ADMINISTRATOR 12/19/2011 Nurse visit All Thakur MD 09/22/2011 Nurse visit All Thakur MD 09/21/2011 Surgery All Thakur MD 09/15/2011 Hospital All Thakur MD 09/15/2011 Office visit All Thakur MD 09/13/2011 Office visit All Thakur MD
--- OUTSIDE RECORDS SUMMARY | 2017-08-07 13:47 | XMS REPORT ---
Author Author Max Agarwal Organization [facility] Address [address] [place], [place] [address] Care Team Providers Care Budget Technician Name Role Phone Max Agarwal PCP Unavailable [...] Policy Number Policy Group Number Start Date [employer] [place] [employer] [place] [id number] N/A [facility] [id number] N/A [facility] [id number] N/A [facility] Med Occupational Medicine [id number] N/A [place] Ship'S Cook Prog - RHC [facility] Asst Prog - RHC [id number] Thursday, May 04, 2017 History of Encounters Visit Date Visit Type Provider 07/30/2017 Office visit Max Agarwal MD 06/25/2017 Office visit Max Agarwal MD 06/24/2017 Office visit Jojo Lehman TOOL CARRIER 05/05/2017 Office visit Rissa Pina TOOL CARRIER 04/27/2017 Office visit Rissa Pina TOOL CARRIER 11/27/2016 Office visit Zora Wu TOOL CARRIER 03/11/2012 Nurse visit Patricia Lea MD 03/08/2012 Voided Patricia Lea MD 02/08/2012 Office visit Zora Wu TOOL CARRIER 01/22/2012 Office visit Zora Wu TOOL CARRIER 12/19/2011 Nurse visit All Thakur MD 09/22/2011 Nurse visit All Thakur MD 09/21/2011 Surgery All Thakur MD 09/15/2011 Hospital All Thakur MD 09/15/2011 Office visit All Thakur MD 09/13/2011 Office visit All Thakur MD
--- OUTSIDE RECORDS SUMMARY | 2017-08-07 13:48 | XMS REPORT ---
Author Author Max Agarwal Organization [facility] Address [address] [place], [place] [address] Care Team Providers Care Maternal Fetal Physician Name Role Phone Max Agarwal PCP Unavailable Allergies and Adverse Reactions Name Reaction Notes PENICILLINS Plan of Treatment Planned Activity Comments Planned Date Planned Time Plan/Goal *Thin layer pap with reflex to HPV [...] AM HEPATITIS C AB 06/25/2017 12:00 AM OB Complete Sono, Less than 14 weeks 06/26/2017 12:00 AM Medications Active Name [...] Number Policy Group Number Start Date [place] Public Relations Coordinator Prog - RHC [place] Public Relations Coordinator Prog - RHC [id number] N/A [facility] [id number] N/A zzzCoventry - CMFHP Coventry -CMF[facility] [id number] N/A [facility] Med Occupational Medicine [id number] N/A History of Encounters Visit Date Visit Type Provider 06/25/2017 Office visit Max Agarwal MD 06/24/2017 Office visit Jojo Lehman COFFEE TASTER 05/05/2017 Office visit Rissa Pina COFFEE TASTER 04/27/2017 Office visit Rissa Pina COFFEE TASTER 11/27/2016 Office visit Zora Wu COFFEE TASTER 03/11/2012 Nurse visit Patricia Lea MD 03/08/2012 Voided Patricia Lea MD 02/08/2012 Office visit Zora Wu COFFEE TASTER 01/22/2012 Office visit Zora Wu COFFEE TASTER 12/19/2011 Nurse visit All Thakur MD 09/22/2011 Nurse visit All Thakur MD 09/21/2011 Surgery All Thakur MD 09/15/2011 Hospital All Thakur MD 09/15/2011 Office visit All Thakur MD 09/13/2011 Office visit All Thakur MD
--- OUTSIDE RECORDS SUMMARY | 2017-08-07 13:48 | XMS REPORT ---
Author Author KRISTIN ADAMSON [facility] eClinicalWorks Address Unknown Phone Unavailable Care Team Providers Care Compressor Assembler Name Role Phone KRISTIN ADAMSON CP Unavailable Allergies, Adverse Reactions, Alerts Substance Reaction Event Type Amoxicillin hives Drug Allergy Problems Problem Type Condition Code Onset Dates Condition Status Problem Other general counseling and advice for contraceptive management V25.09 Active Assessment Dysuria R30.0 Active Problem Vaginal burning N94.9 Active Assessment Vaginal burning N94.9 Active Medications Medication Code System Code Instructions Start Date End Date Status Dosage Flagyl [facility] [address]-44 500 MG Orally 2 times a day Jun 08, 2016 Jun 15, 2016 1 tablet Depo-Provera [facility] [address]-08 150 MG/ML Intramuscular one time March 03, 2016 February 26, 2017 1 ml Procedures Procedure Coding System Code Date CULTURE, BACTERIA, OTHER CPT-4 86898 Jun 08, 2016 OLGUIN VAG, DNA, DIR PROBE CPT-4 04295 Jun 08, 2016 URINALYSIS, AUTO, W/O SCOPE CPT-4 20577 Jun 08, 2016 Office Visit, Est Pt., Level 3 CPT-4 27556 Jun 08, 2016 Vital Signs Date/Time: Jun 08, 2016 Cardiac Monitoring Heart Rate 80 bpm Weight 179.1 lbs Height 62 in BMI 32.75 Index Blood Pressure Diastolic 76 mmHg Blood Pressure Systolic 118 mmHg Results No Known Results Summary Purpose eClinicalWorks Submission
--- OUTSIDE RECORDS SUMMARY | 2017-08-07 13:48 | XMS REPORT ---
Author Author Rissa Pina [facility] Address [address] [place], [place] [address] Care Team Providers Care Rib Builder Name Role Phone Rissa Pina PCP Unavailable [...] Policy Number Policy Group Number Start Date [facility] Med Occupational Medicine [id number] N/A [facility] [id number] N/A [facility]oventry - [facility] -[facility] [id number] N/A History of Encounters Visit Date Visit Type Provider 04/27/2017 Office visit Rissa Pina FLUORESCENT LAMP REPLACER 11/27/2016 Office visit Zora Wu FLUORESCENT LAMP REPLACER 03/11/2012 Nurse visit Patricia Lea MD 03/08/2012 Voided Patricia Lea MD 02/08/2012 Office visit Zora Wu FLUORESCENT LAMP REPLACER 01/22/2012 Office visit Zora Wu FLUORESCENT LAMP REPLACER 12/19/2011 Nurse visit All Thakur MD 09/22/2011 Nurse visit All Thakur MD 09/21/2011 Surgery All Thakur MD 09/15/2011 Hospital All Thakur MD 09/15/2011 Office visit All Thakur MD 09/13/2011 Office visit All Thakur MD
--- OUTSIDE RECORDS SUMMARY | 2017-08-07 13:48 | XMS REPORT ---
Author Author KRISTIN ADAMSON [facility] Address [address] [place] [address] Care Team Providers Care Contribution Solicitor Name Role Phone KRISTIN ADAMSON Unavailable PROBLEMS Type Condition ICD9-CM Code XNK45-AB Code Onset Dates Condition Status SNOMED Code Problem Constipation, unspecified constipation type K59.00 Active 29995968 Problem Vaginal burning N94.9 Active 403230238 Problem Other general counseling and advice for contraceptive management V25.09 Active [id number] ALLERGIES No Information SOCIAL HISTORY Never Assessed PLAN OF CARE VITAL SIGNS MEDICATIONS No Known Medications RESULTS No Results PROCEDURES No Known procedures IMMUNIZATIONS No Known Immunizations MEDICAL (GENERAL) HISTORY Type Description Date Medical History Due date 12/17/2016 Surgical History wisdom teeth Hospitalization History child
--- OUTSIDE RECORDS SUMMARY | 2017-08-07 13:48 | XMS REPORT ---
Author KRISTIN Hall [facility] eClinicalWorks Address Unknown Phone Unavailable Care Team Providers Care Spring Salvage Worker Name Role Phone KRISTIN ADAMSON CP Unavailable Allergies No Known Allergies Problems Problem Type Condition Code Onset Dates Condition Status Problem Other general counseling and advice for contraceptive management V25.09 Active Problem Vaginal burning N94.9 Active Medications Medication Code System Code Instructions Start Date End Date Status Dosage Clotrimazole [facility] [address]-78 1 % Vaginal twice a day Jun 20, 2016Jun 1 application at bedtime Results No Known Results Summary Purpose eClinicalWorks Submission
--- OUTSIDE RECORDS SUMMARY | 2017-08-07 13:49 | XMS REPORT ---
Author Author Max Agarwal Organization [facility] Address [address] [place], [place] [address] Care Team Providers Care Location Worker Name Role Phone Max Agarwal PCP Unavailable [...] in second trimester Jul 30 2017 2:34PM Payers Insurance Name Company Name Plan Name Plan Number Policy Number Policy Group Number Start Date [place] Visual Designer Prog - RHC [place] Visual Designer Prog - RHC [id number] Thursday, 2017 [facility] [id number] N/A [facility] [id number] N/A [facility] Med Occupational Medicine [id number] N/A History of Encounters Visit Date Visit Type Provider 07/30/2017 Office visit Max Agarwal MD 06/25/2017 Office visit Max Agarwal MD 06/24/2017 Office visit Jojo SolimanGuerda Kateandrez MANAGER OF SELECTION AND ASSESSMENT 05/05/2017 Office visit Rissa Pina MANAGER OF SELECTION AND ASSESSMENT 04/27/2017 Office visit Rissa Pina MANAGER OF SELECTION AND ASSESSMENT 11/27/2016 Office visit Zora Wu MANAGER OF SELECTION AND ASSESSMENT 03/11/2012 Nurse visit Patricia Lea MD 03/08/2012 Voided Patricia Lea MD 02/08/2012 Office visit Zora Wu MANAGER OF SELECTION AND ASSESSMENT 01/22/2012 Office visit Zora Wu MANAGER OF SELECTION AND ASSESSMENT 12/19/2011 Nurse visit All Thakur MD 09/22/2011 Nurse visit All Thakur MD 09/21/2011 Surgery All Thakur MD 09/15/2011 Hospital All Thakur MD 09/15/2011 Office visit All Thakur MD 09/13/2011 Office visit All Thakur MD
--- OUTSIDE RECORDS SUMMARY | 2017-08-07 13:49 | XMS REPORT ---
Author Author Max Agarwal Organization [facility] Address [address] [place], [place] [address] Care Team Providers Care Commercial Light Fixture Assembler Name Role Phone Max Agarwal PCP Unavailable Allergies and Adverse Reactions Name Reaction Notes PENICILLINS Plan of Treatment Planned Activity Comments Planned Date Planned Time Plan/Goal Ultrasound, OB complete >14 weeks 06/26/2017 12:00 AM *Thin layer pap with reflex to HPV ; cervical/vaginal (ThinPrep or Surepath) 06/25/2017 2:09 PM Gonorrhea 06/25/2017 2:09 PM Chlamydia 06/25/2017 2:09 PM HIV-1 antibody 06/25/2017 2:09 PM UA with Culture and Sensitivity 06/25/2017 2:09 PM panel (CBC with differential, automated, Hepatitis B surface antigen ( HBsAg), Rubella antibody, RBC antibody screen, Blood typing (ABO and Rh(D), RPR w/ Reflex to TP 06/25/2017 2:09 PM OB Sono - Transvaginal - (Done in Office) 06/25/2017 2:09 PM Medications Active Name Start Date Estimated Completion [...] Policy Number Policy Group Number Start Date [place] Community Relations Representative Prog - RHC [place] Community Relations Representative Prog - RHC [id number] N/A [facility] [id number] N/A zzzCoventry - CMFHP Coventry -[facility] [id number] N/A [facility] Med Occupational Medicine [id number] N/A History of Encounters Visit Date Visit Type Provider 06/25/2017 Office visit Max Agarwal MD 06/24/2017 Office visit Jojo Lehman MOLD CLEANER 05/05/2017 Office visit Rissa Pina MOLD CLEANER 04/27/2017 Office visit Rissa Pina MOLD CLEANER 11/27/2016 Office visit Zora Wu MOLD CLEANER 03/11/2012 Nurse visit Patricia Lea MD 03/08/2012 Voided Patricia Lea MD 02/08/2012 Office visit Zora Wu MOLD CLEANER 01/22/2012 Office visit Zora Wu MOLD CLEANER 12/19/2011 Nurse visit All Thakur MD 09/22/2011 Nurse visit All Thakur MD 09/21/2011 Surgery All Thakur MD 09/15/2011 Hospital All Thakur MD 09/15/2011 Office visit All Thakur MD 09/13/2011 Office visit All Thakur MD
--- OUTSIDE RECORDS SUMMARY | 2017-08-07 13:49 | XMS REPORT ---
Author Author KRISTIN ADAMSON Organization [facility] Address [address] [place] [address] Care Team Providers Care Medication Aide Name Role Phone KRISTIN ADAMSON Unavailable PROBLEMS Type Condition ICD9-CM Code [id number] Code Onset Dates Condition Status SNOMED Code Problem Constipation, unspecified constipation type K59.00 Active 37598472 Problem Vaginal burning N94.9 Active 487871343 Problem Other general counseling and advice for contraceptive management V25.09 Active 491654224 ALLERGIES Substance Reaction Event Type Date Status Amoxicillin hives Drug Allergy Feb, Active SOCIAL HISTORY Never Assessed PLAN OF CARE Activity Details Follow Up prn Reason: VITAL SIGNS Height 62 in 2017-02-01 Weight 199.6 lbs 2017-02-01 Temperature 98.8 degrees Fahrenheit 2017-02-01 Heart Rate 88 bpm 2017-02-01 Respiratory Rate 18 2017-02-01 BMI 36.50 kg/m2 2017-02-01 Blood pressure systolic 122 mmHg 2017-02-01 Blood pressure diastolic 60 mmHg 2017-02-01 MEDICATIONS Medication Instructions Dosage Frequency Start Date End Date Duration Status Depo-Provera 150 MG/ML Intramuscular one time 1 ml Mar, Feb, 90 days Active RESULTS Name Result Date Reference Range UA LONG DIP (IN HOUSE) 2017-02-01 Lot # [id number] Exp date 07/2017 Clarity clear Color yellow Odor none GLU negative DERRELL KET negative SG 1.025 BLO negative pH 6.0 Protein negative URO NIT negative YOCASTA negative Lot # Exp date PROCEDURES Procedure Date Ordered Result Body Site URINALYSIS, AUTO, W/O SCOPE February 01, 2017 IMMUNIZATIONS No Known Immunizations MEDICAL (GENERAL) HISTORY Type Description Date Medical History Due date 12/17/2016 Surgical History wisdom teeth Hospitalization History child
--- OUTSIDE RECORDS SUMMARY | 2017-08-07 13:49 | XMS REPORT | CCD ---
Author Author RODRIGO MARIN Organization Unknown Address [address] [facility] [address] [place] [address] Care Team Providers Care Rouge Presser Name Role Phone [facility], PAUL DO Attphys [facility], PAUL DO Prisurg Allergies Allergy Code Allergy Type Reaction Status AMOXIL 0 Drug allergy Active Active Medications Unknown or Not Available. Problems Unknown or Not Available. Procedures Unknown or Not Available. Results Unknown or Not Available. Function Status Unknown or Not Available. History of Immunizations Immunization Code Date HPV, quadrivalent 62 12/06/2006 HPV, quadrivalent 62 04/15/2007 meningococcal MCV4P 114 04/11/2010 Tdap 115 12/12/2007 Tdap 115 01/01/2008 Plan of Treatment Unknown or Not Available. Social History Smoking Status Code Start Date End Date Current every day smoker [id number] Vital Signs Unknown or Not Available. Function Status Unknown or Not Available. Goals Unknown or Not Available. ASSESSMENTS Unknown or Not Available. Health Concerns Section Unknown or Not Available.
--- OUTSIDE RECORDS SUMMARY | 2017-08-07 13:50 | XMS REPORT ---
Author Author Max Agarwal Organization [facility] Address [address] [place], [place] [address] Care Team Providers Care Corrugator Machine Operator Name Role Phone Max Agarwal PCP [...] Diclegis 10-10 mg oral tablet,delayed release (DR/EC) 07/30/2017 take 2 tablets by oral route once daily at bedtime for 30 days Name Start Date Expiration [...] Number Start Date [employer] - RHC - [place] State Plan [employer] - RHC [place] State Plan [id number] N/A [facility] [id number] N/A [facility] [facility] [id number] N/A Occ Med Occupational Medicine [id number] N/A [facility] Asst Prog - RHC [facility] Asst Pro - [facility] [id number] Thursday, May 04, 2017 History of Encounters Visit Date Visit Type Provider 07/30/2017 Office visit Max Agarwal MD 06/25/2017 Office visit Max Agarwal MD 06/24/2017 Office visit Jojo Lehman LITHOGRAPHIC PRESS OPERATOR 05/05/2017 Office visit Rissa Pina LITHOGRAPHIC PRESS OPERATOR 04/27/2017 Office visit Rissa Pina LITHOGRAPHIC PRESS OPERATOR 11/27/2016 Office visit Zora Wu LITHOGRAPHIC PRESS OPERATOR 03/11/2012 Nurse visit Patricia Lea MD 03/08/2012 Voided Patricia Lea MD 02/08/2012 Office visit Zora Wu LITHOGRAPHIC PRESS OPERATOR 01/22/2012 Office visit Zora Wu LITHOGRAPHIC PRESS OPERATOR 12/19/2011 Nurse visit All Thakur MD 09/22/2011 Nurse visit All Thakur MD 09/21/2011 Surgery All Thakur MD 09/15/2011 Hospital All Thakur MD 09/15/2011 Office visit All Thakur MD 09/13/2011 Office visit All Thakur MD
--- OUTSIDE RECORDS SUMMARY | 2017-08-07 13:50 | XMS REPORT | CCD ---
Author Author ILYA SAUNDERS Unknown Address [address] [facility] [address] [place] [address] Care Team Providers Care Foreign Correspondent Name Role Phone [facility], PAUL DO Attphys [facility], PAUL DO Prisurg Allergies Allergy Code Allergy [...] Date End Date Current every day smoker [id number] Vital Signs Unknown or Not Available. Function Status Unknown or Not Available. Goals Unknown or Not Available. ASSESSMENTS Unknown or Not Available. Health Concerns Section Unknown or Not Available.
--- OUTSIDE RECORDS SUMMARY | 2017-08-07 13:50 | XMS REPORT ---
Author Author KRISTIN ADAMSON [facility] Address [address] [place] [address] Care Team Providers Care Fish Fryer Name Role Phone KRISTIN ADAMSON Unavailable PROBLEMS Type Condition ICD9-CM Code [id number] Code Onset Dates Condition Status SNOMED Code Problem Constipation, unspecified constipation type K59.00 Active 20713618 Problem Vaginal burning N94.9 Active 850186450 Problem Other general counseling and advice for contraceptive management V25.09 Active 438749354 ALLERGIES No Information SOCIAL HISTORY Never Assessed PLAN OF CARE VITAL SIGNS MEDICATIONS No Known Medications RESULTS No Results PROCEDURES Procedure Date Ordered Result Body Site TB INTRADERMAL 2016-10-11 N/A TB INTRADERMAL TEST Oct 11, 2016 IMMUNIZATIONS No Known Immunizations MEDICAL (GENERAL) HISTORY Type Description Date Medical History Due date 12/17/2016 Surgical History wisdom teeth Hospitalization History child
--- OUTSIDE RECORDS SUMMARY | 2017-08-07 13:50 | XMS REPORT ---
Author Author KRISTIN ADAMSON [facility] Address [address] [place] [address] Care Team Providers Care Asphalt Tile Floor Layer Name Role Phone KRISTIN ADAMSON Unavailable PROBLEMS Type Condition ICD9-CM Code [id number] Code Onset Dates Condition Status SNOMED Code Problem Constipation, unspecified constipation type K59.00 Active 36283242 Problem Vaginal burning N94.9 Active 517503239 Problem Other general counseling and advice for contraceptive management V25.09 Active 464659785 ALLERGIES No Information SOCIAL HISTORY Never Assessed PLAN OF CARE VITAL SIGNS MEDICATIONS No Known Medications RESULTS Name Result Date Reference Range TEST, URINE (IN HOUSE) 2016-11-03 RESULTS negative Lot # [id number] Control + Exp date 04/02/2018 PROCEDURES Procedure Date Ordered Result Body Site URINE TEST November 03, 2016 DEPO PROVERA (150 MG/ML) November 03, 2016 THER/PROPH/DIAG INJ, SC/IM November 03, 2016 IMMUNIZATIONS Vaccine Route Administration Date Status DEPO PROVERA (150 MG/ML) Unknown November 03, 2016 Administered MEDICAL (GENERAL) HISTORY Type Description Date Medical History Due date 12/17/2016 Surgical History wisdom teeth Hospitalization History child
--- OUTSIDE RECORDS SUMMARY | 2017-08-07 13:51 | XMS REPORT ---
Author Author Max Agarwal Organization [facility] Address [address] [place], [place] [address] Care Team Providers Care Library Monitor Name Role Phone Max Agarwal PCP Unavailable [...] 8:17AM Hyperemesis gravidarum Jun 24 2017 1:30PM Payers Insurance Name Company Name Plan Name Plan Number Policy Number Policy Group Number Start Date [place] [employer] Drilling Machine Operator Prog - RHC [place] [employer] Drilling Machine Operator Prog - RHC [id number] N/A [facility] [id number] N/A [facility] [id number] N/A [facility] Med Occupational Medicine [id number] N/A History of Encounters Visit Date Visit Type Provider 06/25/2017 Office visit Max Agarwal MD 06/24/2017 Office visit Jojo Lehman THROUGH FREIGHT ENGINEER 05/05/2017 Office visit Rissa Pina THROUGH FREIGHT ENGINEER 04/27/2017 Office visit Rissa Pina THROUGH FREIGHT ENGINEER 11/27/2016 Office visit Zora Wu THROUGH FREIGHT ENGINEER 03/11/2012 Nurse visit Patricia Lea MD 03/08/2012 Voided Patricia Lea MD 02/08/2012 Office visit Zora Wu THROUGH FREIGHT ENGINEER 01/22/2012 Office visit Zora Wu THROUGH FREIGHT ENGINEER 12/19/2011 Nurse visit All Thakur MD 09/22/2011 Nurse visit All Thakur MD 09/21/2011 Surgery All Thakur MD 09/15/2011 Hospital All Thakur MD 09/15/2011 Office visit All Thakur MD 09/13/2011 Office visit All Thakur MD
--- OUTSIDE RECORDS SUMMARY | 2017-08-07 13:51 | XMS REPORT ---
Author Author Zora Wu [facility] Address [address] [place], [place] [address] Care Team Providers Care Spinning Machine Tender Name Role Phone Zora Wu PCP Unavailable Allergies and Adverse Reactions Name Reaction Notes PENICILLINS Plan of Treatment Not available. Medications Active Name Start Date Estimated Completion Date SIG Comments Depo-Provera Intramuscular Suspension 150 mg/mL 03/08/2012 inject 150 mg by intramuscular route every 3 months Name Start Date Expiration Date SIG Comments [...] hr , then remove by thorough washing Problem List Description Status Onset Anemia Active Vital Signs Date Time BP-Sys(mm[Hg] BP-Nirmala(mm[Hg]) HR(bpm) RR(rpm) Temp WT HT HC BMI BSA BMI Percentile O2 Sat(%) 11/27/2016 11:10:00 AM 122 mmHg 62 mmHg [...] 150 Mg (brought in by patient) Reviewed Results Summary Data and Description Results 09/13/2011 3:45 PM COLOR [...] BETA HCG QUANT 2116.99 PROGESTERONE 6.10 ng/mL 09/15/2011 2:04 PM WBC 5.9 RBC 4.34 HGB 9.60 g/dLHCT 30.0 %MCV 69.0 fLMCH 22.10 pgMCHC 32.0 g/dLRDW SD 45 RDW CV 17.70 %MPV 8.30 fLPLT 284 NRBC# 0.00 NRBC % 0.0 %NEUT 51.80 %%LYMP 39.30 %%MONO 6.90 %%EOS 1.70 %%BASO 0.30 %#NEUT 3.05 # LYMP 2.32 #MONO 0.41 #EOS 0.10 #BASO 0.02 MANUAL DIFF NOT IND 09/15/2011 6:10 PM WBC 7.1 RBC 3.94 HGB 8.50 g/dLHCT 27.20 %MCV 69.0 fLMCH 21.80 pgMCHC 31.60 g/dLRDW SD 45 RDW CV 17.60 %MPV 9.10 fLPLT 296 NRBC# 0.00 NRBC% 0.0 %NEUT 70.40 %%LYMP 23.70 %%MONO 4.80 %%EOS 1.0 %%BASO 0.10 %#NEUT 5.15 #LYMP 1.73 #MONO 0.35 #EOS 0.07 #BASO 0.01 MANUAL DIFF SEE BELOW SEGS 64 BANDS 7 LYMPHS 22 MONOS 6 EOS 1.0 %RBC MORPH 1+ MICRO History Of Immunizations Not available. History of [...] Policy Number Policy Group Number Start Date [facility] Med Occupational Medicine [id number] N/A [facility] [id number] N/[facility] [id number] N/A History of Encounters Visit Date Visit Type Provider 11/27/2016 Office visit Zora Wu APRN 03/11/2012 Nurse visit Patricia Lea MD 03/08/2012 Voided Patricia Lea MD 02/08/2012 Office visit Zora Wu APRN 01/22/2012 Office visit Zora Wu APRN 12/19/2011 Nurse visit All Thakur MD 09/22/2011 Nurse visit All Thakur MD 09/21/2011 Surgery All Thakur MD 09/15/2011 [facility] All Thakur MD 09/15/2011 Office visit All Thakur MD 09/13/2011 Office visit All Thakur MD
[2017-08-07] MEDS ORDERED: ONDA4TAB11 (13:59)
--- NOTE | 2017-08-07 14:02 | ED GU-Female ---
General Chief Complaint: Abdominal/GI Problems Stated Complaint: N/V/FEELING FAINT//18 WKS PG Nursing Triage Note: AMB TO ROOM REPORTS OFF AND ON FOR LAST 3 WEEKS HAS HAD NAUSEA AND VOMITING. HAS SEEN HER DE ICER FINISHER IN [place] FOR WAS GIVEN ZOFRAN FOR. REPORTS ZOFRAN NO LONGER HELPING. Nursing Sepsis Screen: No Definite Risk Source: patient Exam Limitations: no limitations History of Present Illness Time seen by provider: 14:02 Allergies and Home Medications Allergies Coded Allergies: Amoxicillin (Verified Allergy, Unknown, 04/22/07) Penicillins (Verified Allergy, Unknown, 01/17/11) Home Medications Ondansetron 4 Mg Tab.rapdis, (Reported) Vits W-Ca,Fe,Fa(<1MG) 1 Each Tablet, 1 TAB PO DAILY, (Reported) Past Pmoiuuv-Mdfsrk-Vpmekm Hx Patient Social History Alcohol Use: Denies Use Recreational Drug Use: No Smoking Status: Current Everyday Smoker Recent Foreign Travel: No Contact w/Someone Who Travel: No Recent Infectious Disease Expo: No Recent Hopitalizations: No Surgeries History of Surgeries: Yes Respiratory History of Respiratory Disorde: Yes Cardiovascular History of Cardiac Disorders: No Neurological History of Neurological Disord: No Reproductive System Hx Reproductive Disorders: No Sexually Transmitted Disease: No Gastrointestinal History of Gastrointestinal Di: Yes Musculoskeletal History of Musculoskeletal Dis: No Endocrine History of Endocrine Disorders: No Psychosocial History of Psychiatric Problem: No Blood Transfusions History of Blood Disorders: Yes Physical Exam Vital Signs Vital Sign - Last 12Hours 08/07/17 13:42 Temp 99.0 Pulse 84 Resp 18 B/P (MAP) 136/70 (92) Pulse Ox 99 O2 Delivery Room Air Capillary Refill : Less Than 3 Seconds Progress/Results/Core Measures Suspected Sepsis Recent Fever Within 48 Hours: No Infection Criteria Present: None New/Unexplained Altered Menta: No Sepsis Screen: No Definite Risk Sepsis Diagnosis: SIRS Temperature:99.0 Pulse: 84 Respiratory Rate: 18 Laboratory Tests 08/07/17 14:26: White Blood Count 9.6 Blood Pressure 136 /70 Mean: 92 Laboratory Tests 08/07/17 14:26: Creatinine 0.58L, Platelet Count 387, Total Bilirubin 0.3 Results/Orders Lab Results Laboratory Tests Test 08/07/17 14:17 08/07/17 14:26 Range/Units Urine Color YELLOW Urine Clarity CLEAR Urine pH 8 5-9 Urine Specific [place] 1.015 L 1.016-1.022 Urine Protein NEGATIVE NEGATIVE Urine Glucose (UA) NEGATIVE NEGATIVE Urine Ketones NEGATIVE NEGATIVE Urine Nitrite NEGATIVE NEGATIVE Urine Bilirubin NEGATIVE NEGATIVE Urine Urobilinogen NORMAL NORMAL MG/DL Urine Leukocyte Esterase 2+ H NEGATIVE Urine RBC (Auto) NEGATIVE NEGATIVE Urine RBC NONE /HPF Urine WBC 0-2 /HPF Urine Squamous Epithelial Cells >50 H /HPF Urine Crystals NONE /LPF Urine Amorphous Sediment MOD DARIN PHOSPHATE H /LPF Urine Bacteria NEGATIVE /HPF Urine Casts NONE /LPF Urine Mucus NEGATIVE /LPF Urine Culture Indicated NO White Blood Count 9.6 4.3-11.0 10^3/uL Red Blood Count 4.76 4.35-5.85 10^6/uL Hemoglobin 11.3 L 11.5-16.0 G/DL Hematocrit 34 L 35-52 % Mean Corpuscular Volume 72 L 80-99 FL Mean Corpuscular Hemoglobin 24 L 25-34 PG Mean Corpuscular Hemoglobin Concent 33 32-36 G/DL Red Cell Distribution Width 15.0 H 10.0-14.5 % Platelet Count 387 130-400 10^3/uL Mean Platelet Volume 8.8 7.4-10.4 FL Neutrophils (%) (Auto) 67 42-75 % Lymphocytes (%) (Auto) 20 12-44 % Monocytes (%) (Auto) 11 0-12 % Eosinophils (%) (Auto) 2 0-10 % Basophils (%) (Auto) 0 0-10 % Neutrophils # (Auto) 6.4 1.8-7.8 X 10^3 Lymphocytes # (Auto) 1.9 1.0-4.0 X 10^3 Monocytes # (Auto) 1.0 0.0-1.0 X 10^3 Eosinophils # (Auto) 0.2 0.0-0.3 10^3/uL Basophils # (Auto) 0.0 0.0-0.1 10^3/uL Sodium Level 136 135-145 MMOL/L Potassium Level 3.8 3.6-5.0 MMOL/L Chloride Level 106 98-107 MMOL/L Carbon Dioxide Level 22 21-32 MMOL/L Anion Gap 8 5-14 MMOL/L Blood Urea Nitrogen 7 7-18 MG/DL Creatinine 0.58 L 0.60-1.30 MG/DL Estimat Glomerular Filtration Rate > 60 BUN/Creatinine Ratio 12 Glucose Level 79 70-105 MG/DL Calcium Level 9.0 8.5-10.1 MG/DL Total Bilirubin 0.3 0.1-1.0 MG/DL Aspartate Amino Transf (AST/SGOT) 21 5-34 U/L Alanine Aminotransferase (ALT/SGPT) 28 0-55 U/L Alkaline Phosphatase 56 40-136 U/L Total Protein 7.1 6.4-8.2 GM/DL Albumin 3.7 3.2-4.5 GM/DL Lipase 21 8-78 U/L My Orders Orders - EDEN YANEZ Ua Culture If Indicated (08/07/17 14:07) Heart Tones (08/07/17 14:07) Cbc With Automated Diff (08/07/17 14:27) Comprehensive Metabolic Panel (08/07/17 14:27) Lipase (08/07/17 14:27) Saline Lock/Iv-Start (08/07/17 14:27) Ondansetron Injection (Zofran Injectio (08/07/17 14:30) Ns Iv 1000 Ml (Sodium Chloride 0.9%) (08/07/17 14:27) Medications Given in ED Current Medications Medications Dose Ordered Sig/Anais Route Start Time Stop Time Status Last Admin Dose Admin Ondansetron HCl 4 mg ONCE ONCE IVP 08/07/17 14:30 08/07/17 14:31 DC 08/07/17 14:38 4 MG Sodium Chloride 1,000 ml @ 0 mls/hr Q0M ONCE IV 08/07/17 14:27 08/07/17 14:28 DC 08/07/17 14:38 1,000 MLS/HR Vital Signs/I&O Vital Sign - Last 12Hours 08/07/17 13:42 Temp 99.0 Pulse 84 Resp 18 B/P (MAP) 136/70 (92) Pulse Ox 99 O2 Delivery Room Air Capillary Refill : Less Than 3 Seconds Blood Pressure Mean: 92 Departure Impression Impression: Primary Impression: Hyperemesis gravidarum Additional Impression: with 18 completed weeks gestation Disposition: 01 HOME, SELF-CARE Condition: Improved Departure-Patient Inst. Decision time for Depature: 15:16 Referrals: PAUL GAMA MD (PCP/Family) Primary Care Physician Patient Instructions: Nausea and Vomiting of (DC) Add. Discharge Instructions: All discharge instructions reviewed with patient and/or family. Voiced understanding. Continue Diclegis and Zofran as instructed by your history faculty member. Drink plenty of fluids. Tylenol extra strength [id number] as needed for pain. Avoid spicy foods and fatty foods. Follow-up with your history faculty member next 1-2 days for recheck, call for appointment time tomorrow morning. Return to the emergency department for worsened vomiting, vomiting blood, decreased urination, pain with urination, blood in the urine, vaginal bleeding, vaginal discharge, fever, or any other concerns. EDEN YANEZ Aug 07, 2017 14:02
[2017-08-07 14:24] LABS: BILIRUBIN,URINE NEGATIVE (NEGATIVE); KETONES,URINE NEGATIVE (NEGATIVE); LEUKOCYTE ESTERASE ,URINE 2+ (NEGATIVE); NITRITE,URINE NEGATIVE (NEGATIVE); PH,URINE 8 (5-9); PROTEIN,URINE NEGATIVE (NEGATIVE); UROBILINOGEN,URINE NORMAL (NORMAL)
[2017-08-07] MEDS ORDERED: NS IV 1000 ML 1,000 ML IV ONE ×2 (14:27→15:41)
[2017-08-07] MEDS ORDERED: ONDANSETRON 4 MG/2 ML (SDV) Z0FRAN IVP ONE ×2 (14:30→15:45)
[2017-08-07 14:31] LABS: SQUAMOUS EPITHELIAL CELL,UR >50 /HPF; WBC,URINE 0-2 /HPF
[2017-08-07 14:45] LABS: BASOPHILS % (AUTO) 0 % (0-10); EOSINOPHILS # (AUTO) 0.2 10^3/uL (0.0-0.3); EOSINOPHILS % (AUTO) 2 % (0-10); LYMPHOCYTES # (AUTO) 1.9 X 10^3 (1.0-4.0); LYMPHOCYTES % (AUTO) 20 % (12-44); MEAN CORPUSCULAR HEMOGLOBIN 24 PG (25-34); MEAN CORPUSCULAR HGB CONC 33 G/DL (32-36); MEAN CORPUSCULAR VOLUME 72 FL (80-99); MEAN PLATELET VOLUME 8.8 FL (7.4-10.4); MONOCYTES % (AUTO) 11 % (0-12); NEUTROPHILS # (AUTO) 6.4 X 10^3 (1.8-7.8); NEUTROPHILS % (AUTO) 67 % (42-75); PLATELET COUNT 387 10^3/uL (130-400); RED BLOOD COUNT 4.76 10^6/uL (4.35-5.85); WHITE BLOOD COUNT 9.6 10^3/uL (4.3-11.0)
[2017-08-07 15:04] LABS: ALANINE AMINOTRANSFERASE 28 U/L (0-55); ALBUMIN 3.7 GM/DL (3.2-4.5); ANION GAP 8 MMOL/L (5-14); ASPARTATE AMINO TRANSFERASE 21 U/L (5-34); BILIRUBIN,TOTAL 0.3 MG/DL (0.1-1.0); BLOOD UREA NITROGEN 7 MG/DL (7-18); BUN/CREATININE RATIO 12; CARBON DIOXIDE 22 MMOL/L (21-32); CHLORIDE 106 MMOL/L (98-107); CREATININE SERUM 0.58 MG/DL (0.60-1.30); GFR ESTIMATED > 60; GLUCOSE 79 MG/DL (70-105); LIPASE 21 U/L (8-78); POTASSIUM 3.8 MMOL/L (3.6-5.0); SODIUM 136 MMOL/L (135-145); TOTAL PROTEIN 7.1 GM/DL (6.4-8.2)
[2017-08-07] MEDS ORDERED: FAMOTIDINE 20MG/2ML IV (PEPCID) IV STA (15:41)
[2017-08-07 16:48] VITALS: BP 114/54
== END 2017-08-07 16:47 | disposition home or self-care (01) ==
LOC: EDUNIT# 13:35 → ER 13:39
DX: O21.0 Mild hyperemesis gravidarum (principal); O99.332 Smoking (tobacco) complicating pregnancy, second trimester; F17.200 Nicotine dependence, unspecified, uncomplicated; Z3A.18 18 weeks gestation of pregnancy
CPT/HCPCS: 36415; 80053; 81000; 83690; 85025